=== PATIENT | female | born 1970 | race Caucasian/White ===

== ENCOUNTER 2019-05-29 10:09 | Emergency (ER) | payer SELFPAY ==
[~2019-05-29] VITALS: Ht 162.6 cm; Wt 67.6 kg
[~2019-05-29 10:09] MED LIST: FAMO-63 PO; METO10TA81 PO; RANI150C PO; VENTOLIN HFA18 GM INH
[2019-05-29 10:26] VITALS: BP 132/67
[2019-05-29] MEDS ORDERED: LIDO:MAALOX 1:1 20 ML SINGLE DOSE. SWSW ONE (10:45)
--- NOTE | 2019-05-29 10:59 | PHYS DOC ---
Past Medical History Past Medical History: Anemia, COPD, GERD, Other Additional Past Medical Histor: hiatal hernia (KATHI LLOYD APRN) Past Surgical History: Tubal ligation Additional Past Surgical Histo: hernia repair (KATHI LLOYD APRN) Alcohol Use: None Drug Use: None (KATHI LLOYD APRN) Adult General Chief Complaint Chief Complaint: SORE THROAT HPI HPI Patient is a 49 year old female who presents with a history of GERD and takes omeprazole. Patient states she is currently on prednisone for COPD exacerbation and the prednisone is upsetting her stomach further and causing her car to be worse. Patient states she is having acid reflux coming up into her throat causing her to have throat pain. Patient rates her pain a 9 out of 10 and states she would like a GI cocktail because that really helps. (KATHI LLOYD APRN) Review of Systems Review of Systems Constitutional: Denies fever or chills [] HENT: Denies nasal congestion. sore throat to acid reflux.[] Respiratory: Denies cough or shortness of breath [] Cardiovascular: Denies GI: Gerd. Denies abdominal pain, nausea, vomiting, bloody stools or diarrhea [] : Denies dysuria or hematuria [] Neurologic: Denies headache, focal weakness or sensory changes [] All other systems were reviewed and found to be within normal limits, except as documented in this note. (KATHI LLOYD APRN) Current Medications Current Medications Current Medications Medications (Trade) Dose Ordered Sig/Julia Start Time Stop Time Status Last Admin Dose Admin Multi-Ingredient Mouthwash/Gargle (Gi Cocktail) 20 ml 1X ONCE 05/29/19 10:45 05/29/19 10:46 DC 05/29/19 10:58 20 ML (SHERI MCBRIDE DO) Allergies Allergies Allergies Coded Allergies Type Severity Reaction Last Updated Verified Penicillins Allergy Severe swelling of tingue/face/blisters/rash 05/08/16 Yes amoxicillin Allergy Severe Anaphylaxis 05/08/16 Yes ciprofloxacin Allergy Severe swelling of tongue/face/blisters/rash 05/08/16 Yes (SHERI MCBRIDE DO) Physical Exam Physical Exam Constitutional: Well developed, well nourished, no acute distress, non-toxic appearance. [] Neck: Normal range of motion, no tenderness, supple, no stridor. [] Cardiovascular:Heart rate regular rhythm, no murmur [] Lungs & Thorax: Bilateral breath sounds clear to auscultation [] Abdomen: Bowel sounds normal, soft, no tenderness, no masses, no pulsatile masses. [] Neurologic: Alert and oriented X 3, normal motor function, normal sensory function, no focal deficits noted. [] Psychologic: Affect normal, judgement normal, mood normal. Normal Physical Exam [] (KATHI LLOYD APRN) Current Patient Data Vital Signs Vital Signs Date Time Temp Pulse Resp B/P (MAP) Pulse Ox O2 Delivery O2 Flow Rate FiO2 05/29/19 10:26 98.2 80 16 132/67 (88) 95 Room Air 98.2 (SHERI MCBRIDE DO) EKG EKG [] (KATHI LLOYD APRN) Radiology/Procedures Radiology/Procedures [] (KATHI LLOYD APRN) Course & Med Decision Making Course & Med Decision Making Patient is a 49 year old female who presents with a history of GERD and takes omeprazole. Patient states she is currently on prednisone for COPD exacerbation and the prednisone is upsetting her stomach further and causing her car to be worse. Patient states she is having acid reflux coming up into her throat causing her to have throat pain. Patient rates her pain a 9 out of 10 and states she would like a GI cocktail because that really helps. Patient denies nausea, vomiting, abdominal pain, dysuria, headache, dizziness, syncope, chest pain or visual changes. Ambulatory with a steady gait. Skin pink warm and dry. Lungs are clear to auscultation all lobes. Alert and oriented. PERRLA. Abdomen soft and nontender. Throat is pink without swelling or exudates. Patient given GI cocktail and states she feels much better. Patient discharged home. Patient to continue taking omeprazole as prescribed. Patient to make sure she is taking her prednisone with food. (KATHI LLOYD APRN) Dragon Disclaimer Dragon Disclaimer This electronic medical record was generated, in whole or in part, using a voice recognition dictation system. (KATHI LLOYD APRN) Departure Departure Impression: Primary Impression: Acid reflux Disposition: 01 HOME, SELF-CARE Condition: STABLE Referrals: NO PCP (PCP) Patient Instructions: Diet for Gastroesophageal Reflux Disease, Adult Additional Instructions: Follow-up with primary care provider. Continue taking omeprazole. Make sure you take your prednisone with a meal. Attending Signature Attending Signature I have reviewed the PA/KEYSMITH's note and plan of care. I was available for consultation as needed during the patient's visit in the emergency department. I agree with the clinical impression, plan, and disposition. (SHERI MCBRIDE DO) Problem Qualifiers Primary Impression: Acid reflux Esophagitis presence: esophagitis presence not specified Qualified Codes: K21.9 - Gastro-esophageal reflux disease without esophagitis KATHI LLOYD APRN May 29, 2019 10:59 SHERI MCBRIDE DO May 29, 2019 12:16
== END 2019-05-29 11:04 | disposition home or self-care (01) ==
LOC: ER 10:09
DX: K21.9 Gastro-esophageal reflux disease without esophagitis (principal); J44.1 Chronic obstructive pulmonary disease with (acute) exacerbation; Z98.51 Tubal ligation status; Z98.890 Other specified postprocedural states; Z88.0 Allergy status to penicillin; Z88.1 Allergy status to other antibiotic agents
CPT/HCPCS: 99283